=== PATIENT | male | born 1985 | race Caucasian/White ===

== ENCOUNTER 2016-12-08 20:29 | Emergency (ER) | payer MEDICAID, OTHER ==
[~2016-12-08] VITALS: Ht 170.2 cm; Wt 90.5 kg
[2016-12-08 20:30] VITALS: Ht 170.2 cm; Wt 90.5 kg
[2016-12-08] MEDS ORDERED: CLINDAMYCIN 300 MG INJ IM ONE (21:30)
--- NOTE | 2016-12-08 22:16 | RADRPT ---
PROCEDURE: XR Hand. CLINICAL INDICATION: Laceration. Pain. TECHNIQUE: Three views of the right hand were obtained. COMPARISON: No prior studies are available for comparison. FINDINGS: No fracture is identified. Joint relationships are maintained. Bone mineralization is within renny l limits. Soft tissues are unremarkable. There is no radiopaque foreign body. IMPRESSION: No acute fracture. No radiopaque foreign body. RPTAT: HMVK .Mk Sahni MD, MD Date Time Electronically viewed and signed by .Mk Sahni MD, on 12/08/2016 22:16 .K/
[2016-12-08] MEDS ORDERED: CLIN-73 PO (23:12)
[2016-12-08] MEDS ORDERED: IBUP-1542 PO (23:12)
--- NOTE | 2016-12-08 23:18 | ERD ---
ER Documentation Chief Complaint Date/Time DATE: 12/08/16 TIME: 23:14 Chief Complaint pt reports cut r hand while cutting meat HPI This is a 31-year-old male presents to the ER stating that he cut his hand with a ventilator on Friday. Patient cut his hand between his first and second digit at the webspace. Patient went to a clinic and was given a tetanus shot and sent home with Bactrim. Patient states that the area still hurts and he feels that is not healing appropriately. Patient states that he noticed some yellow discharge this morning. Patient does not get sutures as area was completely avulsed. Patient states that pain is throbbing in quality and it is radiating throughout his hand. He denies any numbness or tingling of his hand. Patient denies any wrist pain or forearm pain he has not had any fevers or chills. There is no discharge from the area. ROS 12 point review of systems was done, all negative except per HPI. Medications Home Meds Active Scripts Clindamycin Hcl* (Clindamycin Hcl*) 300 Mg Capsule, 300 MG PO TID for 7 Days, CAP Prov:HERB JIMENEZ 12/08/16 Ibuprofen* (Motrin*) 600 Mg Tab, 600 MG PO Q6, #30 TAB Prov:HERB JIMENEZ 12/08/16 Allergies Allergies: Coded Allergies: No Known Allergy (Unverified , 12/08/16) PMhx/Soc Medical and Surgical Hx: pt denies Medical Hx, pt denies Surgical Hx Hx Substance Use: No Smoking Status: Never smoker Physical Exam Vitals Vital Signs Date Time Temp Pulse Resp B/P Pulse Ox O2 Delivery O2 Flow Rate FiO2 12/08/16 20:30 98.3 76 18 143/101 99 Physical Exam GENERAL: The patient is well developed and appropriate for usual state of health , in no apparent distress. HEENT: Atraumatic. CHEST: Clear to auscultation bilaterally. There are no rales, wheezes or rhonchi. HEART: Regular rate and rhythm. No murmurs, clicks, rubs or gallops. ABDOMEN: Soft, nontender and nondistended. Good bowel sounds. No rebound or guarding. No gross peritonitis. No gross organomegaly or masses. No Demarco sign or McBurney point tenderness. BACK: No midline or flank tenderness. EXTREMITIES: Right hand: There is a healing avulsion injury to the webspace of the first and second digits. There is no surrounding erythema or discharge area is not tender to palpation. FDS and FDP is intact. Normal capillary refill. Normal pulses. There is no wrist tenderness, no snuffbox tenderness. Normal range of motion. No forearm tenderness. NEURO: Alert and oriented. Results 24 hrs Current Medications Medications (Trade) Dose Ordered Sig/Clemente Route PRN Reason Start Time Stop Time Status Last Admin Dose Admin Clindamycin Phosphate (Cleocin) 300 mg ONCE ONCE IM 12/08/16 21:30 12/08/16 21:31 DC 12/08/16 21:47 [place] [id number] Radiology Main Line: [phone] DIAGNOSTIC IMAGING REPORT Patient: FIGUEROA XIONG : 1985 Age: 31 Sex: M MR #: [id number] DOS: 12/08/16 0000 Ordering MD: HERB JIMENEZ. PA-C Location: [facility] Room/Bed: PROCEDURE: XR Hand. CLINICAL INDICATION: Laceration. Pain. TECHNIQUE: Three views of the right hand were obtained. COMPARISON: No prior studies are available for comparison. FINDINGS: No fracture is identified. Joint relationships are maintained. Bone mineralization is within normal limits. Soft tissues are unremarkable. There is no radiopaque foreign body. IMPRESSION: No acute fracture. No radiopaque foreign body. RPTAT: HMVK .Mk Sahni MD, Date Time Electronically viewed and signed by .Mk Sahni MD, MD on 12/08/2016 22:16 .K/ CC: HERB JIMENEZ Procedures/MDM This is a 31-year-old male presents to the ER with an avulsion injury to the webspace of the first and second digit which occurred on Friday. At this time area does appear to be healing appropriately, however since patient states it was discharged in the morning he will be sent home with antibiotics. X-ray was negative for fractures or dislocations. Suspicion for osteomyelitis, deep space infection is low. Patient will be sent home with clindamycin and ibuprofen. Area was dressed with bacitracin. He is to follow-up with his primary care doctor within 1-2 days return to ER sooner if symptoms worsen. My medical decision making shared with the patient and his they understand and agree with plan. Departure Diagnosis: Primary Impression: Hand pain Condition: Stable Patient Instructions: Laceration, All Additional Instructions: Llame al doctor MAANA y anel jorje PEACE PARA DENTRO DE 1-2 MORRIS.Dgale a la secretaria que nosotros le instruimos hacer esta peace.Avise o llame si vásquez condicin se empeora antes de la peace. Regresa aqui si peor o no mejor. HERB JIMENEZ Dec 08, 2016 23:18
== END 2016-12-08 23:24 | disposition home or self-care (01) ==
LOC: FTE 20:29
DX: S61.401A Unspecified open wound of right hand, initial encounter (principal); W26.8XXA Contact with other sharp object(s), not elsewhere classified, initial encounter; Y92.9 Unspecified place or not applicable
CPT/HCPCS: 73130; 96372; Z7502; Z7610

== ENCOUNTER 2018-05-09 00:15 | Emergency (ER) | END 2018-05-09 02:59 | disposition home or self-care (01) ==